=== PATIENT | male | born 1970 | race Caucasian/White ===

== ENCOUNTER 2017-04-29 21:18 | Emergency (ER) | payer SELFPAY ==
[2017-04-29] MEDS ORDERED: TETANUS/DIPHTHERIA TOXOID [ADULT] 0.5 ML VIAL IM ONE (22:45)
[2017-04-29] MEDS ORDERED: LEVOFLOXACIN 500 MG TABLET ONE (23:09)
== END 2017-04-29 23:13 | disposition home or self-care (01) ==
LOC: EDH 21:18
DX: S81.831A Puncture wound without foreign body, right lower leg, initial encounter (principal); L03.115 Cellulitis of right lower limb; X58.XXXA Exposure to other specified factors, initial encounter; Y93.89 Activity, other specified; Y92.89 Other specified places as the place of occurrence of the external cause; Y99.8 Other external cause status
CPT/HCPCS: 73590; 90471; 90714